=== PATIENT | female | born 1945 | race Caucasian/White ===

== ENCOUNTER → 2018-11-15 14:03 | Outpatient (CLI) | payer MEDICARE, SELFPAY ==
--- NOTE | 2018-11-15 | DI.ECHO.S_ITS ---
[facility] + [facility] +---------+ : : [address] : : : : [address] : : : : [address], : : : : [place] [address] : : : : Phone: [phone] [facility] Echocardiogram Report + + :Name: JUAN DAVID HERNANDEZ Study Date: 11/15/2018 Height: 66 in : :[facility] Exam Location: [facility] Weight: 175 lb : : Gender: Female BSA: 1.9 m2 : :: 1945 Age: 73 yrs BP: 140/80 mmHg: :Reason For Study: Ascending aorta dilation : : Performed By: Rita Page : :Referring: DAMION GONZALEZ : + + Interpretation Summary The left ventricle is normal in size, wall thickness, and systolic function without any focal wall motion abnormalities. The ejection fraction is estimated to be 60-65%. Diastolic parameters suggest a relaxation abnormality of the left ventricle, consistent with probable normal filling pressures. The right ventricle is normal in size and function. The right ventricular systolic pressure is estimated to be at least 26 mmHg based on an estimated right atrial pressure of 3 mm Hg. The left atrium is moderately dilated. The right atrium is mildly dilated. There is mild mitral regurgitation. There is no other significant valvular heart disease. The ascending aorta is mild-moderately enlarged which is not significantly changed. Procedure: A two-dimensional transthoracic echocardiogram with color flow and Doppler was performed. The study quality was technically adequate. Prior comparison from 06/18/2016 with images only. The patient was in normal sinus rhythm during the exam. Left Ventricle: The left ventricle is normal in size, wall thickness, and systolic function without any focal wall motion abnormalities. The ejection fraction is estimated to be 60-65%. Diastolic parameters suggest a relaxation abnormality of the left ventricle, consistent with probable normal filling pressures. Right Ventricle: The right ventricle is normal in size and function. Atria: The left atrium is moderately dilated. The right atrium is mildly dilated. There is no Doppler evidence for an interatrial shunt. Mitral Valve: The mitral valve leaflets appear mildly thickened, but open well. There is mild mitral regurgitation. Aortic Valve: The aortic valve is trileaflet. The aortic valve opens well. There is trace aortic regurgitation. Tricuspid Valve: The tricuspid valve is normal in structure and function. There is trace tricuspid regurgitation. The right ventricular systolic pressure is estimated to be at least 26 mmHg based on an estimated right atrial pressure of 3 mm Hg. Pulmonic Valve: The pulmonic valve is not well visualized. There is trace pulmonic regurgitation. There is no other significant valvular heart disease. Great Vessels: The aortic root is normal size. The ascending aorta is mild- moderately enlarged. The aortic arch is normal in size. The pulmonary artery is not well visualized, but is probably normal size. The IVC is of normal diameter and collapses greater than 50% with a sniff. This suggests a low right atrial pressure of 3 mm Hg. Pericardium/ Pleura There is no pericardial effusion. There is no pleural effusion. MMode/2D Measurements & Calculations LVIDd: 4.7 cm AoV Openin.2 cm LVIDs: 3.2 cm Ao root diam: 3.6 cm IVSd: 0.75 cm asc Aorta Diam: 4.2 cm LVPWd: 0.87 cm Ao Arch Diam (Prox Trans): 3.1 cm LV yuan. diameter/BSA (cm/m^2): 2.5 LV sys. diameter/BSA (cm/m^2): 1.7 FS: 31.4 % EPSS: 0.53 cm LA A2 area: 27.3 cm2 RA long axis: 5.7 cm LA A4 area: 22.3 cm2 RA area: 22.5 cm2 LA length (vol): 6.2 cm RA vol: 75.2 ml LA vol: 83.3 ml RA : 39.8 ml/m2 LA vol index: 44.1 ml/m2 RVD1 (basal): 4.0 cm IVC diam: 1.9 cm RVD2 (mid): 3.5 cm Doppler Measurements & Calculations Ao V2 max: 146.4 cm/sec LVOT Max Ankit: 105.2 cm/sec Ao V2 mean: 109.1 cm/sec LV V1 max P.4 mmHg Ao V2 VTI: 33.3 cm LV V1 VTI: 24.0 cm Ao max P.6 mmHg Ao mean P.1 mmHg sev ratio: 0.72 MV E max ankit: 70.6 cm/sec MV A max ankit: 89.6 cm/sec MV E/A: 0.79 Med Peak E' Ankit: 4.9 cm/sec E/E' med: 14.6 Lat Peak E' Ankit: 6.5 cm/sec E/E' lat: 10.9 E/e' average: 12.7 MV dec time: 0.26 sec TR max ankit: 238.6 cm/sec MV P1/2t: 76.5 msec TR max P.8 mmHg MVA(P1/2t): 2.9 cm2 PA V2 max: 58.2 cm/sec PA V2 mean: 44.9 cm/sec PA mean P.85 mmHg PA Accel Time: 0.10 sec Reading Physician:04:24 PM
== END ==
PROVIDERS: Family Provider Internal Medicine; PCP Internal Medicine; Visit Provider Internal Medicine
DX: I34.0 Nonrheumatic mitral (valve) insufficiency (principal); I77.810 Thoracic aortic ectasia
CPT/HCPCS: 93306

== ENCOUNTER → 2021-01-23 14:46 | Outpatient (CLI) | payer MEDICARE, OTHER, SELFPAY ==
--- NOTE | 2021-01-23 | DI.ECHO.S_ITS ---
[facility]---------+ [facility] +---------+ : : [address] : [place] : : : : [id number] : : : : Phone: [phone]+ Echocardiogram Report + + :Name: JUAN DAVID HERNANDEZ Study Date: 01/23/2021 Height: 66 in : :[facility] ReadingLocation: Weight: 175 lb : : Gender: Female BSA: 1.9 m2 : :: 1945 Age: 75 yrs BP: 152/103 mmHg: :Reason For Study: Aortic, Ascending Aneurysm : :Ordering Physician: LISA, : :DAMION Performed By: Tan Ryder : :Referring: DAMION GONZALEZ : + + Interpretation Summary The ejection fraction is estimated to be 55-60%. There is mild aortic valve sclerosis. The ascending aorta is mildly enlarged.4cm Procedure: A two-dimensional transthoracic echocardiogram with color flow and Doppler was performed. The study quality was technically adequate. Comparison is made with the echocardiogram of 11/15/2018. The patient was in sinus rhythm with heart rates between 68-78 bpm during the exam. Left Ventricle: The left ventricle is normal in size and wall thickness. Left ventricular systolic function is normal. The ejection fraction is estimated to be 55-60%. There are no focal wall motion abnormalities. Diastolic function could not be accurately assessed due to unobtainable data. Right Ventricle: The right ventricle is normal in size and function. Atria: Both atria are normal in size. There is no Doppler evidence for an interatrial shunt. Mitral Valve: The mitral valve is normal in structure and function. There is no mitral regurgitation noted. Aortic Valve: The aortic valve is slightly calcified. The aortic valve is trileaflet. The aortic valve opens well. There is mild aortic valve sclerosis. There is trace aortic regurgitation. Tricuspid Valve: The tricuspid valve is normal in structure and function. There is trace tricuspid regurgitation. Pulmonary artery pressures cannot be estimated because of the lack of a measurable TR jet velocity but the IVC suggests a CVP of around 3 mmHg. Pulmonic Valve: The pulmonic valve is not well seen, but is grossly normal. There is a trace or physiologic amount of pulmonic regurgitation. Great Vessels: The aortic root is normal size. The ascending aorta is mildly enlarged. The IVC is of normal diameter and collapses greater than 50% with a sniff. This suggests a low right atrial pressure of 3 mm Hg. Pericardium/ Pleura There is no pericardial effusion. There is no pleural effusion. MMode/2D Measurements & Calculations LVIDd: 4.8 cm LVOT diam: 2.3 cm LVIDs: 3.2 cm Ao root diam: 3.4 cm FS: 32.9 % asc Aorta Diam: 4.0 cm IVSd: 0.93 cm LVPWd: 0.94 cm LV yuan. diameter/BSA (cm/m^2): 2.5 LV sys. diameter/BSA (cm/m^2): 1.7 LA A4 area: 13.4 cm2 RA long axis: 3.7 cm LA length (vol): 4.2 cm RA area: 10.0 cm2 RA vol: 23.3 ml RA : 12.3 ml/m2 TAPSE: 2.4 cm Doppler Measurements & Calculations Ao V2 max: 126.1 cm/sec LVOT Max Ankit: 105.0 cm/sec Ao V2 mean: 88.3 cm/sec LV V1 max P.4 mmHg Ao max P.4 mmHg LV V1 VTI: 22.3 cm Ao mean P.4 mmHg EDDIE(I,D): 3.8 cm2 Ao V2 VTI: 23.6 cm EDDIE(V,D): 3.4 cm2 sev ratio: 0.94 EDDIE indexed to BSA (cm^2/m^2): 2.0 MV E max ankit: 48.6 cm/sec PA V2 max: 94.0 cm/sec MV A max ankit: 89.1 cm/sec PA V2 mean: 65.7 cm/sec MV E/A: 0.55 PA mean P.9 mmHg Med Peak E' Ankit: 5.8 cm/sec PA pr(Accel): 47.9 mmHg E/E' med: 8.4 Lat Peak E' Ankit: 7.1 cm/sec E/E' lat: 6.9 E/e' average: 7.6 MV dec time: 0.34 sec SV(LVOT): 90.3 ml Reading Physician:04:43 PM
== END ==
PROVIDERS: Family Provider Internal Medicine; PCP Internal Medicine; Referring Provider Internal Medicine; Visit Provider Internal Medicine
DX: I35.8 Other nonrheumatic aortic valve disorders (principal); I77.810 Thoracic aortic ectasia
CPT/HCPCS: 93306

== ENCOUNTER → 2022-04-15 09:31 | Outpatient (CLI) | payer MEDICARE, OTHER, SELFPAY | PROVIDERS: Family Provider Internal Medicine; PCP Internal Medicine; Referring Provider Internal Medicine; Visit Provider Internal Medicine | DX: Z78.0 Asymptomatic menopausal state (principal) | CPT/HCPCS: 77080 ==

== ENCOUNTER → 2023-03-02 12:05 | Outpatient (CLI) | payer MEDICARE, OTHER, SELFPAY ==
--- NOTE | 2023-03-02 | DI.RAD.S_ITS ---
PROCEDURE: XR KNEE RT 3V INDICATIONS: right knee pain TECHNIQUE: 3 views of the knee were acquired. COMPARISON: None. FINDINGS: Bones: No fractures or dislocations. No suspicious bony lesions. Soft tissues: No joint effusion. No suspicious soft tissue calcifications. IMPRESSION: No acute fracture. No osseous lesion. If symptoms and/or clinical suspicion for pathology persist, further assessment with repeat, or advanced imaging (e.g., CT, MRI, or bone scan) may be helpful for further assessment. Dictated by: Lennie Leigh M.D. on 03/02/2023 at 14:56 Approved by: Lennie Leigh M.D. on 03/02/2023 at 14:57
== END ==
PROVIDERS: Family Provider Internal Medicine; PCP Internal Medicine; Referring Provider Internal Medicine; Visit Provider Internal Medicine
DX: M25.561 Pain in right knee (principal)
CPT/HCPCS: 73562

== ENCOUNTER → 2023-03-16 09:57 | Outpatient (CLI) | payer MEDICARE, OTHER, SELFPAY ==
--- NOTE | 2023-03-16 | DI.ECHO.S_ITS ---
[facility] +---------+ Hospital +---------+ : : [address] : [place] : : : : [id number] : : : : Phone: [phone]---------+ Echocardiogram Report + + :Name: JUAN DAVID HERNANDEZ Study Date: 03/16/2023 Height: 66.5 in: :[facility] ReadingLocation: Weight: 165 lb : : Gender: Female BSA: 1.9 m2 : :: 1945 Age: 77 yrs BP: 137/82 mmHg: :Reason For Study: ANEURYSM OF THE AORTA : :Ordering Physician: LISA, : :DAMION Performed By: Francine Vazquez : :Referring: DAMION GONZALEZ : + + Interpretation Summary Normal left ventricle size with ejection fraction 60-65%. Mild mitral regurgitation. Mild tricuspid regurgitation. Mild aortic valve sclerosis. The ascending aorta is moderately enlarged. Comparison is made with the echocardiogram of 01/23/2021, the ascending aorta size has increased slightly from 4.0 cm. to 4.2 cm. Procedure: A two-dimensional transthoracic echocardiogram with color flow and Doppler was performed. The study quality was technically adequate. Comparison is made with the echocardiogram of 01/23/2021. The patient was in sinus rhythm with heart rates between 56-64 bpm during the exam. Left Ventricle: The left ventricle is normal in size and wall thickness. The ejection fraction is estimated to be 60-65%. There are no focal wall motion abnormalities. Right Ventricle: The right ventricle is normal in size and function. Atria: The left atrial size is normal. Right atrial size is normal. There is no Doppler evidence for an interatrial shunt. Mitral Valve: The mitral valve is normal in structure and function. There is mild mitral regurgitation. Aortic Valve: The aortic valve is trileaflet. The aortic valve opens well. There is mild aortic valve sclerosis. There is no aortic valve stenosis. No aortic regurgitation is present. Tricuspid Valve: The tricuspid valve is normal in structure and function. There is mild tricuspid regurgitation. The right ventricular systolic pressure is estimated to be at least 27 mmHg based on an estimated right atrial pressure of 3 mm Hg. Pulmonic Valve: The pulmonic valve leaflets are thin and pliable; valve motion is normal. There is mild pulmonic regurgitation. Great Vessels: The aortic root is normal size. The ascending aorta is moderately enlarged. The IVC is of normal diameter and collapses greater than 50% with a sniff. This suggests a low right atrial pressure of 3 mm Hg. Pericardium/ Pleura There is no pericardial effusion. There is no pleural effusion. MMode/2D Measurements & Calculations LVIDd: 4.7 cm LVOT diam: 2.1 cm LVIDs: 3.3 cm Ao root diam: 3.3 cm FS: 30.0 % asc Aorta Diam: 4.2 cm EPSS: 0.86 cm Ao Arch Diam (Prox Trans): 3.5 cm IVSd: 0.96 cm LVPWd: 0.98 cm LV yuan. diameter/BSA (cm/m^2): 2.5 LV sys. diameter/BSA (cm/m^2): 1.8 LA A2 area: 20.8 cm2 RA long axis: 4.6 cm LA A4 area: 15.3 cm2 RA area: 13.8 cm2 LA length (vol): 4.8 cm RA vol: 34.9 ml LA vol: 56.2 ml RA : 18.8 ml/m2 LA vol index: 30.3 ml/m2 IVC diam: 1.7 cm RVD1 (basal): 3.3 cm RVD2 (mid): 2.4 cm TAPSE: 1.9 cm Doppler Measurements & Calculations Ao V2 max: 153.0 cm/sec LVOT Max Ankit: 112.3 cm/sec Ao V2 mean: 119.8 cm/sec LV V1 max P.0 mmHg Ao max P.4 mmHg LV V1 VTI: 23.7 cm Ao mean P.1 mmHg EDDIE(I,D): 2.5 cm2 Ao V2 VTI: 33.7 cm EDDIE(V,D): 2.6 cm2 sev ratio: 0.70 EDDIE indexed to BSA (cm^2/m^2): 1.4 MV E max ankit: 73.1 cm/sec TR max ankit: 246.0 cm/sec MV A max ankit: 95.9 cm/sec TR max P.2 mmHg MV E/A: 0.76 PA V2 max: 72.5 cm/sec Med Peak E' Ankit: 4.8 cm/sec PA V2 mean: 51.1 cm/sec E/E' med: 15.1 PA mean P.2 mmHg Lat Peak E' Ankit: 6.1 cm/sec PA pr(Accel): 12.2 mmHg E/E' lat: 11.9 E/e' average: 13.5 MV dec time: 0.29 sec SV(LVOT): 84.6 ml Electronically signed by: Francisca collins Leslie Physician:03/16/2023 01:05 PM
== END ==
PROVIDERS: Family Provider Internal Medicine; PCP Internal Medicine; Referring Provider Internal Medicine; Visit Provider Internal Medicine
DX: I71.40 Abdominal aortic aneurysm, without rupture, unspecified; I08.3 Combined rheumatic disorders of mitral, aortic and tricuspid valves; I77.89 Other specified disorders of arteries and arterioles
CPT/HCPCS: 93306

== ENCOUNTER → 2023-10-07 08:39 | Outpatient (CLI) | payer OTHER, SELFPAY ==
--- NOTE | 2023-10-07 08:40 | DI.MRI.S_ITS ---
PROCEDURE: MR ABDOMEN WO/W CON INDICATIONS: Left renal mass TECHNIQUE: Coronal HASTE through abdomen and pelvis; axial 2D FLASH in- and [id number] (with and without fat saturation), and breath-hold T2 FSE from the hepatic dome to the bottom of the kidneys. Coronal HASTE MR urogram of kidneys and bladder. Dynamic coronal VIBE during IV gadolinium administration; postgadolinium axial VIBE or 2D FLASH with fat saturation from the hepatic dome through the kidneys. COMPARISON: Outside Facility, RG, CT ANGIO CHEST, 07/01/2023, 14:30. FINDINGS: Image quality: Diagnostic. Kidneys and Ureters: There is a partially exophytic, heterogeneous and enhancing T2 mildly hyperintense mass arising from the lateral interpolar region of the left kidney measuring 2.3 x 2.1 x 2.7 cm corresponding to the CT finding. There is no extension of this mass through the renal cortex or encroachment on the renal sinus fat. No other solid renal masses are seen in either kidney. Occasional tiny cortical T2 hyperintensities are otherwise present. No hydronephrosis. Visible portions of the ureters are nondilated. OTHER: Lung bases: Unremarkable. Liver: No visible enhancing mass. Normal size, signal, and smooth margin. Gallbladder: Normal. No stones or wall thickening. Biliary ducts: Nondilated. Pancreas: Normal. No ductal dilatation. Spleen: Size within normal. Probable splenule anteriorly. Adrenal Glands: No adrenal nodules. Stomach and Bowel: Tiny hiatal hernia. Otherwise normal, decompressed stomach. Fluid-filled diverticulum arising cranially from the 2nd portion of the duodenum. Visible bowel loops otherwise demonstrate extensive diverticular disease throughout the colon. There may be wall thickening versus mucosal redundancy involving the ascending colon. There is no bowel obstruction implied. Peritoneum: No abnormal intraperitoneal fluid. No free air. Ventral Wall: No hernia. Abdominal Nodes: No retroperitoneal or mesenteric adenopathy by size criteria. Vessels: Aorta and inferior vena cava are normal in size. Bones: No aggressive osseous abnormality. IMPRESSION: 2.7 cm left lateral renal mass concerning for renal cell carcinoma. Its location makes this amenable to percutaneous biopsy and ablation. No evidence of pathologic adenopathy. Incompletely evaluated, incidentally noted, and possibly artifactual wall thickening within the proximal colon. Please consider CT with oral contrast or colonoscopy if not recently performed. Dictated by: Shasha Abbott M.D. on 10/07/2023 at 13:52 Approved by: Shasha Abbott M.D. on 10/07/2023 at 14:07
== END ==
PROVIDERS: Family Provider Internal Medicine; PCP Internal Medicine; Referring Provider Internal Medicine; Visit Provider Internal Medicine
DX: N28.89 Other specified disorders of kidney and ureter (principal)
CPT/HCPCS: 74183; A9579

== ENCOUNTER → 2023-10-12 08:00 | Outpatient (CLI) | payer OTHER, SELFPAY ==
--- NOTE | 2023-10-12 08:02 | DI.US.S_ITS ---
PROCEDURE: US THYROID INDICATIONS: Nontoxic multinodular goiter TECHNIQUE: Real-time scanning was performed of the thyroid gland, with image documentation. COMPARISON: Outside CT dated 07/01/2023 FINDINGS: Thyroid: Right thyroid lobe is surgically absent. Left lobe measures 3.9 x 1.7 x 2.4 cm. Isthmus is 0.6 cm thick. Echotexture is heterogeneous. Nodule number: 1 Location: Mid to lower pole left thyroid lobe Size: 2.6 x 1.9 x 1.7 cm. Composition: Solid Echogenicity: Hypoechoic Shape: Wider than tall Margins: Smooth Echogenic foci: Punctate and macro calcifications Total points: 7 ACR TI-RADS category: Highly suspicious IMPRESSION: 1. Highly suspicious nodule in mid to lower pole left thyroid lobe, suggest fine-needle aspiration of this nodule for further evaluation. 2. Prior resection of right thyroid lobe with no discernible residual tissues within right thyroid bed. ACR TI-RADS definitions and recommendations: TI-RADS 1 (benign): 0 points. FNA not needed. TI-RADS 2 (not suspicious): 2 points. FNA not needed. TI-RADS 3 (mildly suspicious): 3 points. * FNA if 2.5 cm or larger, follow up if 1.5 cm or larger (at 1, 3, and 5 years). TI-RADS 4 (moderately suspicious): 4-6 points. * FNA if 1.5 cm or larger, follow up if 1 cm or larger (at 1, 2, 3, and 5 years). TI-RADS 5 (highly suspicious): 7 points or more. * FNA if 1 cm or larger, follow up if 0.5 cm or larger (every year for 5 years). Dictated by: Trent Casas M.D. on 10/12/2023 at 12:23 Approved by: Trent Casas M.D. on 10/12/2023 at 12:25
== END ==
PROVIDERS: Family Provider Internal Medicine; PCP Internal Medicine; Referring Provider Internal Medicine; Visit Provider Internal Medicine
DX: E04.1 Nontoxic single thyroid nodule (principal); N28.89 Other specified disorders of kidney and ureter; L90.0 Lichen sclerosus et atrophicus
CPT/HCPCS: 76536; 99214

== ENCOUNTER → 2023-10-25 07:57 | Outpatient (CLI) | payer OTHER, SELFPAY ==
--- NOTE | 2023-10-25 | PATH_ITS ---
Note [facility] Accession Number: [id number] TESTS RESULT FLAG UNITS REF RANGE LAB Clinician Provided Cytology Information No. of containers..08 Previously Prepared Cytology Slide 35 Unknown Storage/container code(s) Source: LEFT THYROID #1 DIAGNOSIS: LEFT THYROID #1, FINE NEEDLE ASPIRATION. NON-DIAGNOSTIC. [place] CATEGORY I. NONDIAGNOSTIC. SCANT COLLOID AND TWO GROUPS OF BENIGN FOLLICULAR CELLS ARE PRESENT (SIX GROUPS REQUIRED FOR ADEQUACY). REASPIRATION IS RECOMMENDED. Pathologist ICD10: E04.1 Signed out by: Vibha Sánchez MD, Pathologist NPI- [id number] Performed by: Efrain Farfan, Asw Specialist ([facility]) Gross description: 30 CC, COLORLES, CLEAR RECIEVED: IN CYTOLYT WITH 9 ALCOHOL FIXED AND 9 QUICK STAINED SLIDES ALSO 1 RNA VIAL WILL ON 06-29-2025.VO /VDU 10/26/2023 1154 Local FLAG LEGEND: L-Low Normal,H-High Normal,LL-Alert Low,HH-Alert High <-Panic Low,>-Panic High,A-Abnormal,AA-Critical Abnormal Performed at: 01 =[facility] [address], [place] [address] Amadou Vogel MD, Performed at: 01 [facility] Cytology [address], [place], [place] [id number] MD Amadou Vogel MD Phone: [phone]
--- NOTE | 2023-10-25 07:59 | DI.US.S_ITS ---
PROCEDURE: US FINE NEEDLE ASPIRATION INDICATIONS: Nontoxic single thyroid nodule TECHNIQUE: The indications, alternatives, benefits, risks, and complications of the procedure were explained to the patient. Written informed consent was obtained and placed in the chart. The thyroid region was examined sonographically and a site was chosen for ultrasound guided percutaneous sampling. The skin was prepared and draped in the usual fashion, and anesthetized with 1% lidocaine infiltrated from the skin down to the thyroid gland. Multiple passes were then performed, with contents emptied into an appropriate pathology specimen container. A bandage was applied to the area of access at completion of the study. COMPARISON: None. FINDINGS: Location(s) of lesion(s) sampled: Left lower pole thyroid nodule. [place]: 25 gauge hypodermic needles. Number of passes: 9 Medications: 1% lidocaine for local anaesthesia. Complications: None. IMPRESSION: Successful ultrasound-guided thyroid nodule fine needle aspiration, with cytology results pending. Please see chart below for management recommendations based on cytology results. [facility] ReportingRecommendationsNon-diagnostic* Repeat US-guided FNA, with on-site cytology evaluation if possible. * Repeated non-diagnostic nodules without high suspicion US features: close observation vs surgical consult. * Consider surgery if nodule has high suspicion US features, grows >20% in 2 dimensions on followup, or patient has clinical risk factors for malignancy. Benign* If nodule has high suspicion US features: repeat US and FNA within 12 months. * If nodule has low to intermediate suspicion US features: repeat US at 12-24 months. If nodule grows (20% increase in at least 2 dimensions, with minimal increase of 2 mm or >50% change in volume), or development of new suspicious US features, then repeat FNA or continue followup. * If nodule has very low suspicion US features: followup US at >24 months. Atypia of undetermined significance, follicular lesion of undetermined significanceRepeat FNA, molecular testing, followup US, or surgical consult.Follicular neoplasm, suspicious for follicular neoplasmSurgical consult; also consider molecular testing. Suspicious for malignancySurgical consult.MalignantSurgical consult. Dictated by: Trent Casas M.D. on 10/25/2023 at 10:15 Approved by: Trent Casas M.D. on 10/25/2023 at 10:16
== END ==
PROVIDERS: Family Provider Internal Medicine; PCP Internal Medicine; Referring Provider Internal Medicine; Visit Provider Internal Medicine
DX: E04.1 Nontoxic single thyroid nodule (principal)
CPT/HCPCS: 10005

== ENCOUNTER → 2024-01-20 12:38 | Outpatient (CLI) | payer OTHER, SELFPAY ==
--- NOTE | 2024-01-20 | DI.CT.S_ITS ---
PROCEDURE: CT CHEST WO CON INDICATIONS: PULM. NODULES TECHNIQUE: Noncontrast 5 mm thick sections acquired from the pulmonary apices to the posterior costophrenic angles. 1 mm lung window, 5 mm thick coronal and sagittal and 7 mm axial MIP reformats were then acquired. For radiation dose reduction, the following was used: automated exposure control, adjustment of mA and/or kV according to patient size. COMPARISON: Outside Facility, RG, CT ANGIO CHEST, 07/01/2023, 14:30. FINDINGS: Image quality: Diagnostic Lungs and pleura: No dense airspace disease. No pleural effusions. Scattered areas of scarring and atelectasis. Mild bronchial wall thickening, likely bronchitis. Scarring in the lingula is similar to prior, with some thickening. There are numerous small pulmonary nodules, for example 3-4 mm nodule in the right upper lobe (3/74) is stable from prior. Mediastinum, heart, and esophagus: Trace pericardial effusion. Annular calcifications small hiatal hernia. No pathologic lymph nodes by size criteria. Chest wall and thyroid: Left thyroid calcified nodule again seen, better assessed on ultrasound. Upper abdomen: Separately dictated Bones: Degenerative changes, no acute or suspicious osseous finding. IMPRESSION: Numerous small pulmonary nodules are stable compared to prior imaging. In the setting of renal mass, attention on follow-up is suggested. Other findings as above. Abdominal findings are separately dictated. Dictated by: Chris Anthony M.D. on 01/20/2024 at 16:43 Approved by: Chris Anthony M.D. on 01/20/2024 at 16:47
--- NOTE | 2024-01-20 12:39 | DI.CT.S_ITS ---
PROCEDURE: CT ABDOMEN RENAL PROTOCOL INDICATIONS: Follow-up left renal mass TECHNIQUE: Optional 5 mm thick noncontrast images acquired from the diaphragm to the iliac crests. After the administration of intravenous contrast, 5 mm thick images again acquired from the diaphragm to the iliac crests in the arterial and urographic phases. 5 mm thick coronal and sagittal reformats were then acquired. For radiation dose reduction, the following was used: automated exposure control, adjustment of mA and/or kV according to patient size. COMPARISON: [facility], , MR ABDOMEN WO/W CON, 10/07/2023, 8:58. FINDINGS: Image quality: Diagnostic Lower chest: Scattered scarring and atelectasis. Small hiatal hernia. Mild wall thickening at the gastroesophageal junction, nonspecific. Trace pericardial thickening versus effusion. Annular calcifications of the heart Liver: Unremarkable Gallbladder and biliary system: Unremarkable, nondilated duodenal diverticulum adjacent to the ampulla Pancreas: No ductal dilation Spleen: Nonenlarged Adrenals: No discrete nodules Kidneys: Scattered small cysts are present. Left lateral renal mass is slightly increased in size measuring 2.8 x 2.3 cm, previously 2.7 x 2.1 cm. There may be a spiculation within the calyx. The left renal vein is patent. No hydronephrosis Mass contacts the lateral conal fascia. Vessels and lymph nodes: No abdominal aortic aneurysm. The main portal vein is patent. No pathologic lymph nodes by size criteria. Bowel and peritoneum: No evidence of small bowel obstruction. No pathologic ascites or drainable abscess. There are colonic diverticula. Body wall: Unremarkable Bones: There are degenerative changes. IMPRESSION: Left lateral renal mass is slightly enlarged compared to 10/07/2023. This contacts the lateral conal fascia. Location in size makes this amenable to ablation if necessary. There is a possible spiculation within the calyx () Other findings as above. Dictated by: Chris Anthony M.D. on 01/20/2024 at 16:04 Approved by: Chris Anthony M.D. on 01/20/2024 at 16:14
[2024-01-20 13:29] LABS: Estimated Glomerular Filt Rate > 60 mL/min (>60)
[2024-01-20 13:38] LABS: BUN Creatinine Ratio 31.8 (6-22); Blood Urea Nitrogen 21 mg/dL (7-17); Calcium 9.5 mg/dL (8.4-10.2); Carbon Dioxide 28 mmol/L (22-32); Chloride 107 mmol/L (98-107); Estimated Glomerular Filt Rate > 60 mL/min (>60); Glucose 135 mg/dL (80-110); HEMOLYSIS < 15 (0-50); Potassium 4.5 mmol/L (3.4-5.1); Sodium 141 mmol/L (137-145)
== END ==
PROVIDERS: Radiology Neuroradiology; Family Provider Internal Medicine; PCP Internal Medicine; Referring Provider Urology; Visit Provider Urology
DX: N28.89 Other specified disorders of kidney and ureter (principal); K44.9 Diaphragmatic hernia without obstruction or gangrene; K57.10 Diverticulosis of small intestine without perforation or abscess without bleeding; K57.90 Diverticulosis of intestine, part unspecified, without perforation or abscess without bleeding
CPT/HCPCS: 36415; 71250; 74170; 80048; 82565; Q9967

== ENCOUNTER → 2024-02-11 14:39 | Outpatient (CLI) | payer OTHER, SELFPAY ==
--- NOTE | 2024-02-11 | DI.ECHO.S_ITS ---
[facility] : : [address] : [place] : : [id number] : : Phone: [phone] Echocardiogram Report + + :Name: JUAN DAVID HERNANDEZ Study Date: 02/11/2024 Height: 66 in : :[facility] ReadingLocation: Weight: 160 lb : : Gender: Female BSA: 1.8 m2 : :: 1945 Age: 78 yrs BP: 153/100 mmHg: :Reason For Study: [place] : :Ordering Physician: LISA, : :DAMION Performed By: Tanner Copeland : :Referring: DAMION GONZALEZ : + + Interpretation Summary The left ventricle is normal in size and wall thickness. The ejection fraction is estimated to be 60-65%. There are no focal wall motion abnormalities. Diastolic parameters suggest a relaxation abnormality of the left ventricle, consistent with probable normal filling pressures. The right ventricle is normal size. The right ventricular systolic function is normal. The right ventricular systolic pressure is estimated to be at least 24.6 mmHg based on an estimated right atrial pressure of 3 mm Hg. The left atrial size is normal. There is mild mitral regurgitation. Asc Ao enlarged from 4.2 on previous echo to 4.6 The aortic arch is mild-moderately enlarged. Procedure: A two-dimensional transthoracic echocardiogram with color flow and Doppler was performed. The study quality was technically adequate. Comparison is made with the echocardiogram of 03/16/2023. The patient was in sinus rhythm with heart rates between 57-64 bpm during the exam. Left Ventricle: The left ventricle is normal in size and wall thickness. The ejection fraction is estimated to be 60-65%. There are no focal wall motion abnormalities. Diastolic parameters suggest a relaxation abnormality of the left ventricle, consistent with probable normal filling pressures. Right Ventricle: The right ventricle is normal size. The right ventricular systolic function is normal. Atria: The left atrial size is normal. Right atrial size is normal. The interatrial septum grossly appears intact with no obvious evidence for an atrial septal defect. Mitral Valve: The mitral valve is normal. There is no mitral valve stenosis. There is mild mitral regurgitation. Aortic Valve: The aortic valve is trileaflet. The aortic valve is mildly calcified. There is no aortic valve stenosis. There is trace aortic regurgitation. Tricuspid Valve: The tricuspid valve is normal. There is no tricuspid stenosis. There is mild tricuspid regurgitation. The right ventricular systolic pressure is estimated to be at least 24.6 mmHg based on an estimated right atrial pressure of 3 mm Hg. Pulmonic Valve: The pulmonic valve is not well visualized. There is no pulmonic valvular stenosis. There is a trace or physiologic amount of pulmonic regurgitation. Great Vessels: The aortic root is normal size. Asc Ao enlarged from 4.2 on previous echo to 4.6. The aortic arch is mild-moderately enlarged. The IVC is of normal diameter and collapses greater than 50% with a sniff. This suggests a low right atrial pressure of 3 mm Hg. Pericardium/ Pleura There is no pericardial effusion. There is no pleural effusion. MMode/2D Measurements & Calculations LVIDd: 4.8 cm LVOT diam: 1.9 cm LVIDs: 3.2 cm Ao root diam: 3.3 cm FS: 33.1 % asc Aorta Diam: 4.6 cm IVSd: 1.0 cm Ao Arch Diam (Prox Trans): 3.8 cm LVPWd: 0.98 cm LV yuan. diameter/BSA (cm/m^2): 2.6 LV sys. diameter/BSA (cm/m^2): 1.7 LA A2 area: 15.7 cm2 RA long axis: 4.7 cm LA A4 area: 16.1 cm2 RA area: 13.9 cm2 LA length (vol): 4.9 cm RA vol: 34.5 ml LA vol: 44.0 ml RA : 19.0 ml/m2 LA vol index: 24.2 ml/m2 IVC diam: 1.7 cm RVD1 (basal): 3.8 cm RVD2 (mid): 3.5 cm TAPSE: 2.5 cm Doppler Measurements & Calculations Ao V2 max: 118.7 cm/sec LVOT Max Ankit: 82.7 cm/sec Ao V2 mean: 80.4 cm/sec LV V1 max P.7 mmHg Ao max P.6 mmHg LV V1 VTI: 18.6 cm Ao mean P.9 mmHg EDDIE(I,D): 2.2 cm2 Ao V2 VTI: 23.9 cm EDDIE(V,D): 2.0 cm2 sev ratio: 0.78 EDDIE indexed to BSA (cm^2/m^2): 1.2 MV E max ankit: 42.1 cm/sec TR max ankit: 232.4 cm/sec MV A max ankit: 86.8 cm/sec TR max P.6 mmHg MV E/A: 0.49 PA V2 max: 87.5 cm/sec Med Peak E' Ankit: 2.7 cm/sec PA V2 mean: 57.9 cm/sec E/E' med: 15.6 PA mean P.5 mmHg Lat Peak E' Ankit: 3.5 cm/sec PA pr(Accel): 32.8 mmHg E/E' lat: 12.0 E/e' average: 13.8 MV dec time: 0.16 sec SV(LVOT): 52.6 ml Reading Physician:06:47 PM
== END ==
PROVIDERS: Family Provider Internal Medicine; PCP Internal Medicine; Referring Provider Internal Medicine; Visit Provider Internal Medicine
DX: I08.1 Rheumatic disorders of both mitral and tricuspid valves (principal); I77.89 Other specified disorders of arteries and arterioles; R01.1 Cardiac murmur, unspecified
CPT/HCPCS: 93306

== ENCOUNTER 2024-02-18 15:13 | Observation (INO) | payer OTHER, SELFPAY ==
[2024-01-07 10:52] VITALS: BMI 25.8
--- NOTE | 2024-01-11 08:51 | P.HP_ITS ---
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) Surgical History History of hysterectomy History of tonsillectomy Status post vaginal hysterectomy Family History Brother Alcoholism Drug abuse Diabetes mellitus Hearing impairment Brother Age: 75 Diabetes mellitus Alcoholism Drug abuse Hearing impairment Father Diabetes mellitus Heart disease Hearing impairment Thyroid disorder Grandfather Stroke Grandmother Diabetes mellitus Mother Diabetes mellitus Hypertension Heart disease Hearing impairment Thyroid disorder Grandfather Heart disease Brother Hearing impairment Aunt Breast cancer Social History marital status: unmarried,single number of children: 3 household members: none lives independently: Yes occupational status: previously employed 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 Smoking Status: Former smoker Tobacco: How many years used: 10 alcohol intake: current substance use type: does not use caffeine: Yes Type(s) of exercise: walking and other frequency: 3-4 times per week Meds Home Medications and Allergies Home Medications Medication Instructions Recorded Confirmed Type enalapril maleate 20 mg tablet 20 mg PO QDAY #90 tabs 08/02/17 11/18/23 Rx ketoconazole 2 % topical cream 1 applic topical DAILY 10/12/23 11/18/23 History tacrolimus 0.1 % topical ointment 1 applic topical BID 10/12/23 11/18/23 History trazodone 100 mg tablet 100 mg PO DAILY 10/12/23 11/18/23 History cetirizine 10 mg tablet (Aller-Jeimy) 10 mg PO DAILY 11/18/23 11/18/23 History glucos sul [id number]-C-Mn 2 cap PO .qd 11/18/23 11/18/23 History [Glucosamine Chondroitin] levothyroxine 75 mcg tablet 75 mcg PO .qod 11/18/23 11/18/23 History levothyroxine 88 mcg tablet 88 mcg PO .qod 11/18/23 11/18/23 History sour alcocer extract 1,000 mg mg PO 11/18/23 11/18/23 History capsule (Tart Alcocer Extract) Allergies Allergy/AdvReac Type Severity Reaction Status Date / Time No Known Allergies Allergy Uncoded 11/18/23 11:25
[2024-02-18] VITALS (16 sets, daily range): BP systolic 108–181; BP diastolic 57–97; PULSE 51–79; RESP 10–18; TEMP 36.3–36.9; O2SAT 89–97; BMI 25.8
--- NOTE | 2024-02-18 | PATH_ITS ---
[facility] Accession Number: [id number] No. of containers..01 Tissue . 01 Material submitted: . thyroid gland - LEFT THYROID . 01 Diagnosis: A. LEFT THYROID, LOBECTOMY (6 grams): Multinodular thyroid with a dominant nodule (2.9 cm), with extensive sclerosis and fibrosis. No parathyroid gland identified. No malignancy identidied. [facility] 02/23/2024 0837 Local . 01 Electronically signed: . Moni Main MD, Pathologist NPI- [id number] . 01 Gross description: . Received in formalin with two identifiers and left thyroid, is a guerrero irregular, unoriented lobe of thyroid (2.9 x 2.4 x 1.3 cm, 6 grams). Due to the irregular shape, orientation cannot be determined. The external surface is inked blue. The specimen is serially sectioned into six slices to reveal an ill-defined heterogenous guerrero to red-brown lesion measuring 2.9 x 1.7 x 1.3 cm with areas of calcification. The normal parenchyma is guerrero and soft. The specimen is submitted entirely as follows: A1: Slice 1, perpendicular. A2: Slice 2. A3: Slice 3. A4: Slice 4. A5: Slice 5. A6-A7: Slice 6 perpendicular. Specimen decalcified. ([id number]) /VASQUEZ 02/19/[id number] Local . 01 Pathologist provided ICD-10: E04.2 . 01 CPT . 059032 Specimen Comment: A courtesy copy of this report has been sent to [phone] Performed at: [address] [address], [place], [place] [id number] MD Amadou Vogel MD Phone: [phone]
[2024-02-18] MEDS: LACTATED RINGERS 1,000 ML 42 ML IV ×2 (11:28→14:08)
[2024-02-18] MEDS: ACETAMINOPHEN 325 MG TABLET 975 MG PO (11:29)
--- NOTE | 2024-02-18 12:33 | P.HP_ITS ---
History of Present Illness History of Present Illness Date Patient Seen: 02/18/24 Time Patient Seen: 12:33 Chief complaint: OPB Narrative: 78-year-old woman here for left thyroidectomy. Recall she has a history hypothyroidism and this was treated with radioactive iodine decades go. Despite this she developed a left thyroid nodule which is 2.6 cm and highly suspicious on imaging biopsy of the nodule was nondiagnostic. She is here today for elective excision. [facility] Medical History Thoracic aortic aneurysm Left renal mass Hypothyroidism High blood pressure Coronary heart disease Skin cancer Lichen sclerosus et atrophicus (04/10/14) Surgical History History of hysterectomy History of tonsillectomy Status post vaginal hysterectomy Family History Brother Alcoholism Drug abuse Diabetes mellitus Hearing impairment Brother Age: 75 Diabetes mellitus Alcoholism Drug abuse Hearing impairment Father Diabetes mellitus Heart disease Hearing impairment Thyroid disorder Grandfather Stroke Grandmother Diabetes mellitus Mother Diabetes mellitus Hypertension Heart disease Hearing impairment Thyroid disorder Grandfather Heart disease Brother Hearing impairment Aunt Breast cancer Social History marital status: unmarried,single number of children: 3 household members: none lives independently: Yes occupational status: previously employed 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 Smoking Status: Former smoker Tobacco: How many years used: 10 alcohol intake: current substance use type: does not use caffeine: Yes Type(s) of exercise: walking and other frequency: 3-4 times per week Meds Home Medications and Allergies Home Medications Medication Instructions Recorded Confirmed Type ketoconazole 2 % topical cream 1 applic topical DAILY 10/12/23 01/28/24 History tacrolimus 0.1 % topical ointment 1 applic topical BID 10/12/23 01/28/24 History trazodone 100 mg tablet 100 mg PO DAILY 10/12/23 02/18/24 History cetirizine 10 mg tablet (Aller-Jeimy) 10 mg PO DAILY 11/18/23 02/18/24 History glucos sul [id number]-C-Mn 2 cap PO .qd 11/18/23 01/28/24 History [Glucosamine Chondroitin] levothyroxine 75 mcg tablet 75 mcg PO .qod 11/18/23 02/18/24 History levothyroxine 88 mcg tablet 88 mcg PO .qod 11/18/23 02/18/24 History losartan 50 mg tablet 50 mg PO DAILY 02/18/24 02/18/24 History Allergies Allergy/AdvReac Type Severity Reaction Status Date / Time No Known Allergies Allergy Uncoded 02/18/24 11:10 Exam Vital Signs (past 8 hours): - 02/18/24 11:18 Temperature 97.8 F Pulse Rate 79 Respiratory Rate 16 Blood Pressure 140/85 Pulse Oximetry 97 Oxygen Delivery Method Room Air Oxygen Delivery Method Room Air Narrative Exam Narrative: General adult woman alert oriented no acute distress Left neck marked with my initials Chest nonlabored respiration Extremities warm well perfused Assessment & Plan Assessment and plan (1) Left thyroid nodule: Problem details: 78-year-old woman PMH hypothyroidism with a highly suspicious 3 cm left thyroid nodule. Plan is for left thyroidectomy. Overview of the operation was once again reviewed at the bedside today. Operative risks including hemorrhage, damage to surrounding structures, nerve injury hypoparathyroidism reviewed. Her questions have been answered. Following discussion she provides her written and verbal consent to proceed. Status: Acute Time-Based Coding :: [TOTAL MINUTES] spent with patient and on the chart (including review of chart, obtaining history, exam, reviewing outside data, placing orders, documenting exam and treatment plan, and counseling patient) on [DATE].
[2024-02-18] MEDS: CEFAZOLIN 2 GM/100 ML PREMIX 100 ML IV (13:42)
--- NOTE | 2024-02-18 13:47 | SUR.OPER ---
[place] chair on padded OR bed. Head on gel donut secured with tape over gauze. Arms wrapped in gel pads and papoosed. Pillow under knees. Safety belt at thigh. Cloth tape over blanket over lower legs.
[2024-02-18] MEDS: BUPIVACAINE 0.25% (PF) VIAL 30 ML INJ (13:56)
--- NOTE | 2024-02-18 15:13 | P.OP_ITS ---
Operative Date/Time/Diagnoses Date of procedure: 02/18/24 Time of procedure: 15:28 Pre-op diagnosis: Left thyroid nodule Post-op diagnosis: same Procedure & Clinicians Procedure: Left jonny thyroidectomy Same procedure as scheduled: Yes Indications: 78-year-old woman history of hyperthyroidism status post radioactive iodine treatment several decades ago. She presents with a 2.6 cm highly suspicious nodule on imaging of the left thyroid remnant. Biopsy was performed which was nondiagnostic. She is here for elective left hemithyroidectomy Surgeon: Brandon Woods Substance Abuse Counselor: Ángel Vidal Anesthesia Type: General Operative Notes Findings: 3 cm cystic appearing mass of the left thyroid. The left recurrent laryngeal nerve is clearly identified in the tracheal esophageal groove. Dense a ttachments to the thyroid capsule presumably result of prior radiation therapy. Specimen(s): other (Left thyroid) Estimated Blood Loss (mL): 10 Procedure in detail: Patient was brought to the operating room placed supine on the table. Bilateral lower extremity compression devices were applied. General anesthesia was induced and she was intubated with an endotracheal tube. She received 2 g of Ancef prior to procedure. She was positioned into beach chair position. She was prepped and draped in sterile fashion time-out was performed. Three fingerbreadths above the sternal notch a 6 cm incision was made in natural skin crease of the neck. The subcutaneous tissue was divided and the platysma was exposed. Platysma was divided using electrocautery and then subplatysmal flaps were developed in all directions. The midline raphe was then opened and the strap muscles were dissected off of the thyroid capsule. There were very dense adhesions between the thyroid capsule and the musculature presumably a result of her prior radiation therapy. The pole of the left thyroid was relatively infe rior and had to extend our skin incision slightly in order to move further inferior. The left thyroid appears to have been largely replaced by the thyroid mass. We exposed what would be the superior pole to the mass/thyroid and the superior and superior pole vessels were divided close to the capsule using electrocautery. We clearly identified the left superior parathyroid and this was preserved. We then turned our attention to the inferior pole of the mass/remnant of thyroid and this was mobilized. The tracheal esophageal groove was examined and we identified clearly the recurrent laryngeal nerve within the groove and we are able to trace its path as it entered into the larynx. With the nerve safely posterior out of harm's way the middle of the mass was mobilized and then it was passed off the field labeled left thyroid. It appeared that the left thyroid remnant was almost entirely replaced by the nodule. Hemostasis was checked. Valsalva was performed there was no evidence of hemorrhage. A piece of Surgicel was left in the surgical bed. The strap musculature was then closed with a running Vicryl suture. Platysma closed with running Vicryl and the skin closed with Monocryl followed by the application of Dermabond. She was extubated and transferred to recovery in stable condition. During a previous hysterectomy she had a large volume of unexplained blood loss and she reports propensity towards bleeding. For this reason we recommended that she remain under observation this evening. Complications: none Post-operative Condition: stable Disposition: observation
[2024-02-18] MEDS: LOSARTAN 50 MG TABLET PO (16:32)
[2024-02-18 17:17] LABS: MRSA (Nasal) PCR NOT DETECTED (Not Detect)
[2024-02-18] MEDS: TRAZODONE 50 MG TABLET 100 MG PO (20:48)
[2024-02-18] MEDS: SODIUM CHLORIDE 0.9% FLUSH 10 ML IV (20:49)
[2024-02-19] MEDS: BENZOCAINE/MENTHOL 1 LOZ PKT 1 EACH PO (00:34)
[2024-02-19] MEDS: ACETAMINOPHEN 325 MG TABLET 650 MG PO (00:34)
[2024-02-19 00:36] VITALS: BP 168/75; RESP 20; O2SAT 94
[2024-02-19 04:00] VITALS: O2SAT 94
[2024-02-19] MEDS: LEVOTHYROXINE 75 MCG TABLET PO (06:28)
[2024-02-19 08:00] VITALS: BP 172/82; PULSE 76; RESP 18; O2SAT 95
[2024-02-19 08:32] VITALS: BP 172/82; PULSE 76
[2024-02-19] MEDS: LOSARTAN 50 MG TABLET PO (08:32)
[2024-02-19] MEDS: LORATADINE 10 MG TABLET PO (08:32)
[2024-02-19] MEDS: SODIUM CHLORIDE 0.9% FLUSH 10 ML IV (08:33)
--- NOTE | 2024-02-19 09:11 | CM.DANOTE ---
Addendum entered by MANUELITO Cabrera 02/19/24 13:07: ADD: Per Surgeon, pt medically stable to discharge with outpt f/u and no identified barriers to discharge. Per RN, discharge instructions provided and pt's transport arrived and pt discharged home with family. BF Original Note: Patient is a 78 yo female who was admitted on 02/18/24 for Thyroidectomy. Pt has [facility] for insurance and her PCP is Loan Shukla. EMR was reviewed. Per Surgeon, pt admitted for elective thyroidectomy after lump found and tolerated procedure well and extubated but remained overnight as pt has a hx of blood loss post surgery. SW met bedside with pt and grandson and explained role and pt very pleasant and A&Ox4 and she confirms that she lives in [place] alone but has local supportive family. Pt does not use DME for ambulation and still drives and denies hx of HH or SNF. Pt's local Dtr Delma is her POA. Pt states she is feeling great, her sore throat from surgery intubation is mostly resolved, she tolerated regular diet for breakfast and has been steady on her feet and hopeful to discharge home today and does not anticipate any needs. Pt has grandson bedside but her Dtr will be the one providing transport home at discharge. Plan: SW to follow closely for likely discharge home today if medically stable via family POV and outpt f/u. No SW needs at this time, please refer if indicated. MANUELITO Cabrera Discharge Planning/Care Management CM Discharge Assessment Start: 02/19/24 09:09 Freq: Status: Active Protocol: Document 02/19/24 09:09 (Rec: 02/19/24 09:11 [id number]) Discharge Planning Assessment Assigned Steel Division Supervisor MANUELITO Hinds DPOA/Assigned Designee Name Dtr Delma Contact Information [phone] Advance Directives? Yes Advance Directives on File Yes History Provided By Patient,Medical Record Has Patient been admitted in last 30 No days? Prior Living Arrangements House Household Members none Type of transporation used prior to Drives own vehicle admit Independent with ADL's Yes Is patient alert and oriented? Yes Caregiver for Another No Barriers to Discharge No Discharge Plan Home Transportation Arrangement Family will provide transport home at d/c Referrals Initiated None needed Whiteboard Updated in Patient Room with Yes name and ext. # of Steel Division Supervisor Review Status In Process Please Provide Date Initial DC 02/19/24 Assessment Was Performed Next Review Type Continued Stay Review Pre-Anesthesia Assessment Start: 01/07/24 10:52 Freq: Status: Complete Protocol: Document 01/07/24 10:52 TRINITY (Rec: 01/07/24 10:57 CAB [id number]) Pre-Anesthesia Assessment Patient Information Reviewed Via Chart Review Primary Care Provider Loan Shukla Seen Specialist in Last 12 Months Yes Specialist Seen Storyboard Artist,General surgeon, Urologist Primary Language Kyrgyz Psychology Clinician Required No Height 167.64 cm Weight 72.575 kg Body Mass Index (BMI) 25.8 Hx Anesthesia Reactions No Anesthesia Review Requested No Card Fixer No alcohol intake current Smoking Status Former smoker Patient is completely paralyzed or No completely immobile Mental Status Oriented to own ability 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
--- NOTE | 2024-02-19 09:34 | PM.DS.1 ---
History of Present Illness History of Present Illness Date Patient Seen: 02/19/24 Time Patient Seen: 09:34 Chief complaint: OPB Narrative: s/p completion thyroidectomy No complications. Feels good. Discharge Providers Provider Discharge Date: 02/19/24 Primary care physician: STEVE Sarkar Discharge provider: Precious Velasquez MD Summary Hospital Course Discharge Diagnosis: S/p completion thyroidectomy Hospital Course: No complications, pain treated with Tylenol. Voice is strong. Status at Discharge Cognitive/behavioral status at discharge: at baseline, oriented Functional status at discharge: independent ambulation Overall status at discharge: patient is progressing back to baseline Time Spent with Patient Time spent: Less than 30 minutes Exam Vital Signs (past 8 hours): - 02/19/24 04:00 02/19/24 07:00 02/19/24 08:00 Pulse Rate Respiratory Rate Blood Pressure Pulse Oximetry 94 95 Oxygen Delivery Method Room Air Room Air Room Air 02/19/24 08:00 02/19/24 08:32 Pulse Rate 76 76 Respiratory Rate 18 Blood Pressure 172/82 H 172/82 H Pulse Oximetry 95 Oxygen Delivery Method Oxygen Delivery Method Room Air Oxygen Flow Rate 0 Narrative Exam Narrative: small amount of bruising and edema of neck. No hematoma, vocal cords are strong Objective Labs Labs: Laboratory Results - last 24 hr 02/18/24 15:50 Nasal Screen MRSA (PCR) Not detected [facility] Medical History Thoracic aortic aneurysm Left renal mass Hypothyroidism High blood pressure Coronary heart disease Skin cancer Lichen sclerosus et atrophicus (04/10/14) Surgical History History of hysterectomy History of tonsillectomy Status post vaginal hysterectomy Family History Brother Alcoholism Drug abuse Diabetes mellitus Hearing impairment Brother Age: 75 Diabetes mellitus Alcoholism Drug abuse Hearing impairment Father Diabetes mellitus Heart disease Hearing impairment Thyroid disorder Grandfather Stroke Grandmother Diabetes mellitus Mother Diabetes mellitus Hypertension Heart disease Hearing impairment Thyroid disorder Grandfather Heart disease Brother Hearing impairment Aunt Breast cancer Social History marital status: unmarried,single number of children: 3 household members: none lives independently: Yes occupational status: previously employed 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 Plan of Treatment: Discharge home Discharge Plan Discharge Plan Patient Disposition: Home Discharge orders & Medications Discharge Orders: Discharge (Order); Ordered 02/19/24 Ordered By: Precious Velasquez Prescriptions: New tramadol 50 mg tablet 50 mg PO Q8H PRN (Reason: pain) Qty: 20 0RF Continued levothyroxine 75 mcg tablet 75 mcg PO .qod Rx Instructions: Alternate every other day with 88mcg tablet levothyroxine 88 mcg tablet 88 mcg PO .qod Patient Comments: Alternate every other day with 75mcg tablet glucos sul [id number] [Glucosamine Chondroitin] 2 cap PO .qd cetirizine [Aller-Jeimy] 10 mg tablet 10 mg PO DAILY losartan 50 mg Tablet 50 mg PO DAILY tacrolimus 0.1 % ointment 1 applic topical BID trazodone 100 mg tablet 100 mg PO DAILY ketoconazole 2 % cream 1 applic topical DAILY PRN (Reason: Rash) Follow up/Referrals: Loan Shukla ARNP [Primary Care Provider] - Diet/Activity/Treatments Diet: Diet as Tolerated Activity: no heavy lifting for 2 weeks, avoid constipation as well Cold/Heat Therapy: Ice to neck for 2 days, then warm moist heat as needed Skin/Wound/Dressing Care Report to your healthcare provider any signs of infection, such as:: chills, fever, increased pain and unusual drainage Visit Report/Discharge Packet Instructions: DI for Thyroidectomy Stand Alone Forms: Patient Portal/API, Surgery Discharge Discharge Data Primary Care Provider: Loan Shukla Attending Provider: Brandon Woods VTE Deep Vein Thrombosis/Pulmonary Embolism Present on Admission: No
[2024-02-19 09:38] VITALS: TEMP 36.7
== END 2024-02-19 10:35 | disposition home or self-care (01) ==
LOC: ICU 02-19 09:34 → AC 02-21 13:03 → OR 02-21 13:03 → AC 02-21 13:03
PROVIDERS: Admitting Provider Surgery; Family Provider Internal Medicine; PCP Internal Medicine; Referring Provider Surgery; Visit Provider Surgery
PROC: (CPT 60220; principal; 2024-02-18 12:30)
DX: E04.1 Nontoxic single thyroid nodule (principal)
CPT/HCPCS: 60220; 87797; G0378; J0330; J0690; J1100; J1170; J2405; J2704

== ENCOUNTER → 2024-04-25 08:57 | Outpatient (CLI) | payer OTHER, SELFPAY ==
[2024-02-18 15:56] VITALS: BMI 25.8
--- NOTE | 2024-04-25 08:58 | DI.CT.S_ITS ---
PROCEDURE: CT ABDOMEN RENAL PROTOCOL INDICATIONS: Follow-up left renal mass TECHNIQUE: Optional 5 mm thick noncontrast images acquired from the diaphragm to the iliac crests. After the administration of intravenous contrast, 5 mm thick images again acquired from the diaphragm to the iliac crests in the arterial and urographic phases. 5 mm thick coronal and sagittal reformats were then acquired. For radiation dose reduction, the following was used: automated exposure control, adjustment of mA and/or kV according to patient size. COMPARISON: [facility], CT, CT ABDOMEN RENAL PROTOCOL, 01/20/2024, 13:43. FINDINGS: Image quality: Diagnostic. Kidneys and Ureters: Enhancing left renal mass in the posterolateral left midpole measures 2.4 x 2.3 cm, no significant change. There is no visible infiltration into the retroperitoneal fat or overlying body wall. No further central growth. The calyx is stable. No new renal mass, stone, other cyst, or hydronephrosis. Several parapelvic cysts are present. Visible ureters are normal. OTHER: Lower chest: Mild cardiomegaly. Small hiatal hernia. Pleural parenchymal scarring. No pleural effusion. Liver: No solid mass. Gallbladder: No wall thickening or calcified stones. Biliary ducts: No biliary dilation. Pancreas: Normal size and morphology without visible ductal dilatation or inflammation. Spleen: Size is within normal limits. Adrenal Glands: No adrenal nodules. Stomach and Bowel: Stomach and visible small bowel loops are normal. There are several diverticula throughout the visible colonic loops. Peritoneum: No abnormal intraperitoneal fluid. No free air. Ventral Wall: No hernia. Abdominal Nodes: No retroperitoneal or mesenteric adenopathy by size criteria. Vessels: The abdominal aorta, IVC, and portal vein are of normal caliber. No left renal vein thrombus. Bones: Decreased mineralization. No bone lesion to suggest metastatic disease. IMPRESSION: Stable solid left renal mass without evidence of new metastatic disease or significant local extension. Dictated by: Shasha Abbott M.D. on 04/25/2024 at 18:10 Approved by: Shasha Abbott M.D. on 04/25/2024 at 18:25
[2024-04-25 09:26] LABS: Estimated Glomerular Filt Rate > 60 mL/min (>60)
== END ==
LOC: CT 08:57
PROVIDERS: Radiology Diagnostic Radiology; Family Provider Internal Medicine; PCP Internal Medicine; Referring Provider Urology; Visit Provider Urology
DX: N28.89 Other specified disorders of kidney and ureter (principal); N28.1 Cyst of kidney, acquired; I51.7 Cardiomegaly; K44.9 Diaphragmatic hernia without obstruction or gangrene; K57.90 Diverticulosis of intestine, part unspecified, without perforation or abscess without bleeding
CPT/HCPCS: 36415; 74170; 82565; Q9967

== ENCOUNTER → 2024-10-06 09:25 | Outpatient (CLI) | payer OTHER, SELFPAY ==
[2024-02-18 15:56] VITALS: BMI 25.8
--- NOTE | 2024-10-06 09:26 | DI.CT.S_ITS ---
PROCEDURE: CT ABDOMEN RENAL PROTOCOL INDICATIONS: Left renal mass TECHNIQUE: Optional 5 mm thick noncontrast images acquired from the diaphragm to the iliac crests. After the administration of intravenous contrast, 5 mm thick images again acquired from the diaphragm to the iliac crests in the arterial and urographic phases. 5 mm thick coronal and sagittal reformats were then acquired. For radiation dose reduction, the following was used: automated exposure control, adjustment of mA and/or kV according to patient size. COMPARISON: [facility], MR, MR ABDOMEN WO/W CON, 10/07/2023, 8:58. [facility], CT, CT CHEST WO CON, 01/20/2024, 13:43. [facility], CT, CT ABDOMEN RENAL PROTOCOL, 04/25/2024, 9:44. [facility], CT, CT ABDOMEN RENAL PROTOCOL, 01/20/2024, 13:43. FINDINGS: Image quality: Excellent. Kidneys and Ureters: No hydronephrosis. No solid mass on the right. There is a densely enhancing left lateral exophytic solid renal cortical mass, presumably malignant, which measures up to 2.5 cm in maximal dimension. This had measured 2.3 cm on MR scanning 10/07/23. No complex renal cystic lesion which requires follow up. Several peripelvic cysts are seen at the left kidney adjacent to the lower 3rd collecting system. OTHER: Lower chest: Unremarkable. Liver: No solid mass. Gallbladder: No radiopaque gallstones or wall thickening. Biliary ducts: No biliary dilation. Pancreas: No ductal dilation. Spleen: Size is within normal limits. Adrenal Glands: No adrenal nodules. Stomach and Bowel: Normal colonic caliber, without significant wall thickening. Peritoneum: No abnormal intraperitoneal fluid. No free air. Ventral Wall: No hernia. Abdominal Nodes: No retroperitoneal or mesenteric adenopathy by size criteria. Vessels: Aorta and inferior vena cava are normal in size. Bones: No aggressive osseous abnormality. IMPRESSION: Heterogeneously enhancing solid left renal mass lesion which appears to have very slightly increased in size from the comparison MRI dated 10/07/23, currently measuring 2.5 cm in maximal dimension. This is exophytic from the middle 3rd lateral cortex of the left kidney. No evidence of metastatic disease at this time. Dictated by: Marlon Flores M.D. on 10/06/2024 at 13:39 Approved by: Marlon Flores M.D. on 10/06/2024 at 13:45
[2024-10-06 14:17] LABS: BUN Creatinine Ratio 37.7 (6-22); Blood Urea Nitrogen 23 mg/dL (7-17); Calcium 10.1 mg/dL (8.4-10.2); Carbon Dioxide 23 mmol/L (22-32); Chloride 107 mmol/L (98-107); Estimated Glomerular Filt Rate > 60 mL/min (>60); Glucose 110 mg/dL (80-110); HEMOLYSIS 28 (0-50); Potassium 4.5 mmol/L (3.4-5.1); Sodium 140 mmol/L (137-145)
== END ==
PROVIDERS: Family Provider Internal Medicine; PCP Family Medicine; Referring Provider Urology; Visit Provider Urology
DX: N28.89 Other specified disorders of kidney and ureter (principal)
CPT/HCPCS: 36415; 74170; 80048; Q9967

== ENCOUNTER → 2025-04-12 10:37 | Outpatient (CLI) | payer OTHER, SELFPAY ==
[2024-10-17 09:08] VITALS: BMI 25.8
--- NOTE | 2025-04-12 10:39 | DI.CT.S_ITS ---
PROCEDURE: CT ABDOMEN RENAL PROTOCOL INDICATIONS: Follow-up left renal lesion TECHNIQUE: Optional 5 mm thick noncontrast images acquired from the diaphragm to the iliac crests. After the administration of intravenous contrast, 5 mm thick images again acquired from the diaphragm to the iliac crests in the arterial and urographic phases. 5 mm thick coronal and sagittal reformats were then acquired. For radiation dose reduction, the following was used: automated exposure control, adjustment of mA and/or kV according to patient size. COMPARISON: [facility], CT, CT ABDOMEN RENAL PROTOCOL, 10/06/2024, 12:27. [facility], CT, CT ABDOMEN RENAL PROTOCOL, 04/25/2024, 9:44. FINDINGS: Image quality: Diagnostic. Kidneys and Ureters: No hydronephrosis. No right-sided solid mass. The malignant-appearing slowly enlarging left lateral mid renal cortex solid mass has further slightly enlarged now measuring up to 2.7 cm in maximal axial dimension, having measured 2.5 cm 10/06/24. No complex renal cystic lesion which requires follow up. OTHER: Lower chest: Unremarkable. Liver: No solid mass. Gallbladder: No radiopaque gallstones or wall thickening. Biliary ducts: No biliary dilation. Pancreas: No ductal dilation. Spleen: Size is within normal limits. Adrenal Glands: No adrenal nodules. Stomach and Bowel: Normal colonic caliber, without significant wall thickening. Proximal transverse duodenal diverticulum, uninflamed, noted measuring 3 cm in maximal dimension. Peritoneum: No abnormal intraperitoneal fluid. No free air. Ventral Wall: No hernia. Abdominal Nodes: No retroperitoneal or mesenteric adenopathy by size criteria. Vessels: Aorta and inferior vena cava are normal in size. Bones: No aggressive osseous abnormality. IMPRESSION: 1. Continued enlargement of a solid heterogeneously enhancing mass projecting laterally from the mid left renal cortex having increased in maximal axial dimension from 2.5 cm 10/03 to 2.7 cm currently. No evidence of metastatic disease. 2. Incidental note is made of a 3 cm uninflamed proximal transverse duodenal diverticulum. Such structures are relatively common and generally asymptomatic unless inflamed. Dictated by: Marlon Flores M.D. on 04/13/2025 at 14:02 Approved by: Marlon Flores M.D. on 04/13/2025 at 14:20
== END ==
PROVIDERS: Family Provider Internal Medicine; PCP Family Medicine; Referring Provider Urology; Visit Provider Urology
DX: N28.89 Other specified disorders of kidney and ureter (principal); K57.10 Diverticulosis of small intestine without perforation or abscess without bleeding
CPT/HCPCS: 74170; Q9967

== ENCOUNTER → 2025-04-12 10:39 | Outpatient (CLI) | payer OTHER, SELFPAY ==
[2024-10-17 09:08] VITALS: BMI 25.8
[2025-04-12 11:30] LABS: Blood Urea Nitrogen 23 mg/dL (7-17); Calcium 9.7 mg/dL (8.4-10.2); Carbon Dioxide 24 mmol/L (22-32); Chloride 107 mmol/L (98-107); Estimated Glomerular Filt Rate > 60 mL/min (>60); Glucose 110 mg/dL (70-99); HEMOLYSIS < 15 (0-50); Potassium 4.1 mmol/L (3.4-5.1); Sodium 140 mmol/L (137-145)
== END ==
PROVIDERS: Family Provider Internal Medicine; PCP Family Medicine; Referring Provider Urology; Visit Provider Urology
DX: N28.89 Other specified disorders of kidney and ureter (principal)
CPT/HCPCS: 36415; 80048